=== PATIENT | female | born 1985 | race American Indian/Alaskan Native ===

== ENCOUNTER 2016-07-13 15:42 | Emergency (ER) | payer SELFPAY ==
--- NOTE | 2016-07-13 16:58 | Emergency Department Report ---
Chief Complaint: Chest Pain Stated Complaint: CHEST PAIN/NUMB RT SIDE Time Seen by Provider: 07/13/16 16:49 - HPI History of Present Illness: Patient here complaining of chest pain that started 2 hours prior to coming to the emergency room. She says she is having tightness and aching pain in her left chest in her chest that's radiating down her right arm and her pain is 9 out of 10. She said it feels tight. Patient has a history of high blood pressure and her blood pressure 2 days to 24/148 she says she took her Hyzaar 2 hours ago. She denies any shortness of breath. Reports headache 9 out of 10 to her forehead that hurts. He also reported that she had blurred vision and it was worse but now she has slight burning of blurred vision. Patient reports she has had similar incident in the past. SHe said that they told her was from her blood pressure. - ROS Review of Systems: All systems are negative unless stated in HPI above. - Exam Vital Signs: Vital Signs 07/13/16 16:13 Temperature 98.1 F Pulse Rate 89 Respiratory 18 Rate Blood Pressure 224/148 O2 Sat by Pulse 100 Oximetry Physical Exam: General: This is a 41-year-old female well-nourished well-developed in no acute distress. CV: S1, S2. Regular rate /rhythm. blood Pressure is elevated at 224/148 mini-neuro: GCS of 15, alert and oriented 3. Speech is clear and fluid. Negative pronator drift and negative Romberg. Normal gait. 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 MSE screening note: Focused history and physical exam performed. Due to findings the following was ordered:see [facility] ED Disposition for MSE Condition: Stable
[2016-07-13] MEDS ORDERED: CATAPRES PO ONE (17:02)
[2016-07-13 17:45] LABS: Basophils % (Auto) 0.6 % (0.0-1.8); Eosinophils % (Auto) 5.2 % (0.0-4.3); Hematocrit 40.7 % (30.3-42.9); Hemoglobin 13.6 gm/dl (10.1-14.3); Mean Corpuscular HGB Conc 33 % (30-34); Mean Corpuscular Hemoglobin 31 pg (28-32); Mean Corpuscular Volume 94 fl (79-97); Platelet Count 272 K/mm3 (140-440); Red Blood Count 4.35 M/mm3 (3.65-5.03); Red Cell Distribution Width 14.4 % (13.2-15.2); White Blood Count 7.4 K/mm3 (4.5-11.0)
[2016-07-13 17:45] LABS: Urine Drugs of Abuse Note Disclamer
[2016-07-13 17:54] LABS: Bilirubin,Urine NEG (Negative); Blood,Urine NEG (Negative); Ketones,Urine 20 mg/dL (Negative); Leukocyte Esterase,Urine NEG (Negative); Mucus,Urine FEW /HPF; Nitrite,Urine NEG (Negative); Protein,Urine <15 mg/dL mg/dL (Negative)
[2016-07-13 17:55] LABS: WBC,Urine < 1.0 /HPF (0.0-6.0)
[2016-07-13 18:15] LABS: Alanine Aminotransferase 13 units/L (7-56); Albumin 4.6 g/dL (3.9-5); Albumin/Globulin Ratio 1.2 %; Alkaline Phosphatase 49 units/L (35-129); Anion Gap 20 mmol/L; BUN/Creatinine Ratio 8.75; Bilirubin,Total 0.6 mg/dL (0.1-1.2); Blood Urea Nitrogen 7 mg/dL (7-17); Calcium 9.4 mg/dL (8.4-10.2); Carbon Dioxide 23 mmol/L (22-30); Chloride 101.7 mmol/L (98-107); Glucose 88 mg/dL (65-100); Sodium 141 mmol/L (137-145); Total Protein 8.4 g/dL (6.3-8.2)
[2016-07-13 18:32] LABS: Bilirubin,Direct < 0.2 mg/dL (0-0.2); Bilirubin,Indirect 0.4 mg/dL
--- NOTE | 2016-07-13 18:50 | Emergency Department Report ---
ED Chest Pain HPI - General Chief Complaint: Chest Pain Stated Complaint: CHEST PAIN/NUMB RT SIDE Time Seen by Provider: 07/13/16 16:49 Source: patient Mode of arrival: Ambulatory Limitations: No Limitations - History of Present Illness Initial Comments: 31-year-old female presents to the emergency department complaining of chest pain. Patient reports the onset of left-sided chest pain approximately 2 hours prior to arrival in the emergency department. Pain radiated to her right shoulder and down her right arm. She reports associated headache, vision, and diaphoresis. She denies associated shortness of breath, nausea, or vomiting. Patient states she has felt similar symptoms when her blood pressures been high in the past she states that she took her losartan and came to the emergency department. Upon arrival to the emergency department, the patient was noted to be hypertensive. She was given a dose of clonidine. At this time, the patient reports her symptoms have resolved. She states she feels back to normal. There are no other complaints. MD Complaint: chest pain -: Sudden, This afternoon Onset: during rest Pain Location: left chest Pain Radiation: RUE Severity: mild Quality: heaviness Consistency: constant, now resolved Improves With: medication-other Worsens With: nothing re: diaphoresis Aspirin use within the Past 7 Days: (0) No - Related Data Home Medications Medication Instructions Recorded Confirmed Last Taken Losartan/Hydrochlorothiazide 1 tab PO QDAY 08/02/15 08/02/15 Unknown [Hyzaar 50-12.5 TAB] Previous Rx's Medication Instructions Recorded Last Taken Type Metoprolol [Lopressor TAB] 25 mg PO BID #60 tablet 06/17/15 07/31/15 09:00 Rx Ondansetron [Zofran TAB] 4 mg PO Q8HR PRN #20 tablet 08/02/15 Unknown Rx HYDROcodone/APAP 5-325 [Tennga 1 each PO Q6HR PRN #10 tablet 02/18/16 Unknown Rx 5-325 mg TAB] Allergies Allergy/AdvReac Type Severity Reaction Status Date / Time No Known Allergies Allergy Unverified 06/16/15 20:59 ODALYS score - Odalys Score Age > 65: (0) No Aspirin use within the Past 7 Days: (0) No 3 or more CAD Risk Factors: (0) No 2 or more Angina events in past 24 hrs: (0) No Known CAD with more than 50% Stenosis: (0) No Elevated Cardiac Markers: (0) No ST Deviation Greater than 0.5mm: (0) No ODALYS Score: 0 ED Review of Systems ROS: Stated complaint: CHEST PAIN/NUMB RT SIDE Other details as noted in HPI Comment: All other systems reviewed and negative Constitutional: diaphoresis Eyes: vision change Cardiovascular: chest pain Neurological: headache ED Past Medical Hx - Past Medical History Previous Medical History?: Yes Hx Hypertension: Yes Hx Congestive Heart Failure: No Hx Diabetes: No Hx Asthma: No Hx COPD: No - Surgical History Past Surgical History?: Yes Additional Surgical History: GB SURGERY - Family History Family history: hypertension - Social History Smoking Status: Current Every Day Smoker Substance Use Type: Cocaine, Marijuana - Medications Home Medications: Home Medications Medication Instructions Recorded Confirmed Last Taken Type Metoprolol [Lopressor TAB] 25 mg PO BID #60 tablet 06/17/15 08/02/15 07/31/15 09 :00 Rx Losartan/Hydrochlorothiazide 1 tab PO QDAY 08/02/15 08/02/15 Unknown History [Hyzaar 50-12.5 TAB] Ondansetron [Zofran TAB] 4 mg PO Q8HR PRN #20 tablet 08/02/15 Unknown Rx HYDROcodone/APAP 5-325 [Tennga 1 each PO Q6HR PRN #10 tablet 02/18/16 Unknown Rx 5-325 mg TAB] ED Physical Exam - General Limitations: No Limitations General appearance: alert, in no apparent distress - Head Head exam: Present: atraumatic, normocephalic - Eye Eye exam: Present: normal appearance, PERRL, EOMI - ENT ENT exam: Present: normal exam, normal orophraynx, mucous membranes moist - Neck Neck exam: Present: normal inspection, full ROM. Absent: tenderness - Respiratory Respiratory exam: Present: normal lung sounds bilaterally. Absent: respiratory distress - Cardiovascular Cardiovascular Exam: Present: regular rate, normal rhythm, normal heart sounds - GI/Abdominal GI/Abdominal exam: Present: soft, normal bowel sounds. Absent: distended, tenderness - Extremities Exam Extremities exam: Present: normal inspection, full ROM. Absent: tenderness - Back Exam Back exam: Present: normal inspection, full ROM. Absent: tenderness - Neurological Exam Neurological exam: Present: alert, oriented X3. Absent: motor sensory deficit - Skin Skin exam: Present: warm, dry, intact ED Course Vital Signs 07/13/16 07/13/16 07/13/16 16:13 17:23 18:15 Temperature 98.1 F Pulse Rate 89 89 71 Respiratory 18 16 Rate Blood Pressure 224/148 224/148 Blood Pressure 123/81 [Left] O2 Sat by Pulse 100 100 Oximetry 07/13/16 07/13/16 18:30 19:39 Temperature 98.1 F Pulse Rate 78 85 Respiratory 16 18 Rate Blood Pressure Blood Pressure 118/79 117/82 [Left] O2 Sat by Pulse 100 99 Oximetry ED Medical Decision Making - Lab Data Result diagrams: 07/13/16 17:27 07/13/16 17:26 - EKG Data -: EKG Interpreted by Me EKG shows normal: sinus rhythm, axis, intervals, QRS complexes, ST-T waves Rate: normal - EKG Data When compared to previous EKG there are: no significant change Interpretation: unchanged when compared t (02/18/2016), other (sinus arrhythmia) - Medical Decision Making Laboratory results reviewed and discussed with the patient. Patient has remained asymptomatic since being placed in a room. Her blood pressure has remained within normal limits. Patient has had a nonischemic ECG and 2 negative troponins. Patient will be discharged home at this time. - Differential Diagnosis ACS, hypertensive urgency Critical care attestation.: If time is entered above; I have spent that time in minutes in the direct care of this critically ill patient, excluding procedure time. ED Disposition Clinical Impression: Hypertension Qualifiers: Hypertension type: essential hypertension Qualified Code(s): I10 - Essential ( primary) hypertension Chest pain Qualifiers: Chest pain type: other chest pain Qualified Code(s): R07.89 - Other chest pain ; R07.8 - Other chest pain Disposition: DISCHARGED TO HOME OR SELFCARE Is pt being admited?: No Condition: Stable Instructions: Hypertension (ED), Chest Pain (ED) Referrals: PRIMARY CAREMD [Primary Care Provider] - 3-5 Days Time of Disposition: 20:51
[2016-07-13 19:42] VITALS: BP 117/82
== END 2016-07-13 21:01 | disposition home or self-care (01) ==
LOC: ED 15:42
DX: I10 Essential (primary) hypertension (principal); R07.89 Other chest pain; F17.200 Nicotine dependence, unspecified, uncomplicated; F12.10 Cannabis abuse, uncomplicated
CPT/HCPCS: 36415; 80048; 80074; 80307; 81001; 84484; 84703; 85025; 93005; 93010

== ENCOUNTER 2018-01-31 08:22 | Emergency (ER) | payer SELFPAY ==
[2018-01-31 09:14] VITALS: BP 148/108
--- NOTE | 2018-01-31 10:19 | XRay Report ---
LEFT ANKLE, 3 views: History: Obvious swelling. Bone mineralization is normal. No acute osseous abnormality or joint pathology is identified. There is moderate diffuse soft tissue swelling. IMPRESSION: Soft tissue swelling. No osseous abnormality is detected.
--- NOTE | 2018-01-31 11:36 | Emergency Department Report ---
ED Extremity Problem HPI - General Chief complaint: Extremity Injury, Lower Stated complaint: POSSIBLE BROKEN FOOT Time Seen by Provider: 01/31/18 10:48 Source: patient Mode of arrival: Ambulatory Limitations: No Limitations - History of Present Illness Initial comments: Patient is a 33-year-old black female who states that also flow dropped on her left foot 2 days ago. Patient's been M she is able to bear some weight. Patient states the pain as a 10 out of 10 and aching and throbbing. She worse when she tries to stand on this foot. Patient is a local company refrigerated truck driver - Related Data Previous Rx's Medication Instructions Recorded Last Taken Type Losartan/Hydrochlorothiazide 1 each PO DAILY #30 tablet 08/31/17 Unknown Rx [Losartan-Hctz 100-25 mg Tab] Ibuprofen [Motrin] 800 mg PO Q8HR PRN #20 tablet 01/31/18 Unknown Rx traMADol [Ultram] 50 mg PO Q6HR PRN #10 tablet 01/31/18 Unknown Rx Allergies Allergy/AdvReac Type Severity Reaction Status Date / Time No Known Allergies Allergy Unverified 06/16/15 20:59 ED Review of Systems ROS: Stated complaint: POSSIBLE BROKEN FOOT Other details as noted in HPI Comment: All other systems reviewed and negative ED Past Medical Hx - Past Medical History Previous Medical History?: Yes Hx Hypertension: Yes Hx Congestive Heart Failure: No Hx Diabetes: No Hx Asthma: No Hx COPD: No - Surgical History Past Surgical History?: Yes Additional Surgical History: GB SURGERY - Social History Smoking Status: Current Every Day Smoker Substance Use Type: Alcohol - Medications Home Medications: Home Medications Medication Instructions Recorded Confirmed Last Taken Type Losartan/Hydrochlorothiazide 1 each PO DAILY #30 tablet 08/31/17 Unknown Rx [Losartan-Hctz 100-25 mg Tab] Ibuprofen [Motrin] 800 mg PO Q8HR PRN #20 tablet 01/31/18 Unknown Rx traMADol [Ultram] 50 mg PO Q6HR PRN #10 tablet 01/31/18 Unknown Rx ED Physical Exam - General Limitations: No Limitations General appearance: alert, in no apparent distress - Head Head exam: Present: atraumatic, normocephalic - Eye Eye exam: Present: normal appearance - ENT ENT exam: Present: mucous membranes moist - Neck Neck exam: Present: normal inspection - Respiratory Respiratory exam: Present: normal lung sounds bilaterally. Absent: respiratory distress - Cardiovascular Cardiovascular Exam: Present: regular rate, normal rhythm. Absent: systolic murmur, diastolic murmur, rubs, gallop - GI/Abdominal GI/Abdominal exam: Present: soft, normal bowel sounds - Extremities Exam Extremities exam: Present: normal inspection, tenderness (patient has tenderness to the lateral left foot distally. There is some mild swelling present.), normal capillary refill - Back Exam Back exam: Present: normal inspection - Neurological Exam Neurological exam: Present: alert, oriented X3 - Psychiatric Psychiatric exam: Present: normal affect, normal mood - Skin Skin exam: Present: warm, dry, intact, normal color. Absent: rash ED Course Vital Signs 01/31/18 08:54 Temperature 98.5 F Pulse Rate 80 Respiratory 20 Rate Blood Pressure 148/108 O2 Sat by Pulse 100 Oximetry ED Medical Decision Making - Radiology Data interpreted by me: X-ray of the left foot shows no acute fractures present. - Medical Decision Making Patient placed in orthostatic she will be discharged home with symptomatic relief. Critical care attestation.: If time is entered above; I have spent that time in minutes in the direct care of this critically ill patient, excluding procedure time. ED Disposition Clinical Impression: Foot contusion Qualifiers: Encounter type: initial encounter Laterality: left Qualified Code(s): S90.32XA - Contusion of left foot, initial encounter Disposition: TO HOME OR SELFCARE Is pt being admited?: No Does the pt Need Aspirin: No Condition: Stable Referrals: SUDHA HASTINGS DPM [Staff Physician] - as needed Forms: Work/School Release Form(ED)
--- NOTE | 2018-01-31 11:52 | XRay Report ---
LEFT FOOT, 3 views: The bony architecture is intact. Bony alignment is normal. The joint spaces appear preserved. There is mild soft tissue swelling in the distal foot. IMPRESSION: Distal soft tissue swelling. No acute bony injury is detected.
== END 2018-01-31 11:53 | disposition home or self-care (01) ==
LOC: ED 08:22
DX: S90.32XA Contusion of left foot, initial encounter (principal); I10 Essential (primary) hypertension; F17.200 Nicotine dependence, unspecified, uncomplicated; W22.8XXA Striking against or struck by other objects, initial encounter; Y93.89 Activity, other specified; Y99.8 Other external cause status; Y92.89 Other specified places as the place of occurrence of the external cause
CPT/HCPCS: 99283